=== PATIENT | female | born 1970 | race African-American/Black ===

== ENCOUNTER 2021-03-15 18:46 | Emergency (ER) | payer OTHER, SELFPAY ==
[2021-03-15] MEDS ORDERED: Ibuprofen 400 MG TAB ONE (19:57)
== END 2021-03-15 20:02 | disposition home or self-care (01) ==
LOC: MADERS 18:46
DX: S16.1XXA Strain of muscle, fascia and tendon at neck level, initial encounter (principal); I11.0 Hypertensive heart disease with heart failure; I50.9 Heart failure, unspecified; V43.62XA Car passenger injured in collision with other type car in traffic accident, initial encounter
CPT/HCPCS: 72125